=== PATIENT | male | born 2005 | race Hispanic/Latino ===

== ENCOUNTER → 2025-03-07 | Outpatient (CLI) | payer OTHER | LOC: M OUTALCOH 12:17 | PROVIDERS: ATTEND Psychiatry & Neurology Psychiatry | DX: F10.10 Alcohol abuse, uncomplicated (principal) ==

== ENCOUNTER 2025-04-12 16:00 | Outpatient (RCR) | payer OTHER | END 2025-04-17 | LOC: M OUTALCOH 16:00 | PROVIDERS: ATTEND Psychiatry & Neurology Psychiatry | DX: F10.10 Alcohol abuse, uncomplicated (principal) ==

== ENCOUNTER → 2025-05-17 | Outpatient (RCR) | payer OTHER | LOC: M OUTALCOH 04-19 16:00 | PROVIDERS: ATTEND Psychiatry & Neurology Psychiatry | DX: F10.10 Alcohol abuse, uncomplicated (principal) ==

== ENCOUNTER 2025-06-16 14:00 | Outpatient (RCR) | payer OTHER | END 2025-06-17 | LOC: M OUTALCOH 14:00 | PROVIDERS: ATTEND Psychiatry & Neurology Psychiatry | DX: F10.10 Alcohol abuse, uncomplicated (principal) ==

== ENCOUNTER 2025-07-08 14:30 | Outpatient (RCR) | payer OTHER | END 2025-07-17 | LOC: M OUTALCOH 14:30 | PROVIDERS: ATTEND Psychiatry & Neurology Psychiatry | DX: F10.10 Alcohol abuse, uncomplicated (principal) ==

== ENCOUNTER 2025-08-08 13:17 | Outpatient (RCR) | payer OTHER | END 2025-08-17 | LOC: M OUTALCOH 13:17 | PROVIDERS: ATTEND Psychiatry & Neurology Psychiatry | DX: F10.10 Alcohol abuse, uncomplicated (principal) ==